=== PATIENT | male | born 1970 | race Caucasian/White ===

== ENCOUNTER 2016-08-22 15:26 | Observation (INO) | payer BC ==
[~2016-08-22] VITALS: Ht 177.8 cm; Wt 98.7 kg
[2016-08-22] MEDS ORDERED: ASPI81TA85 PO (15:33)
[2016-08-22] MEDS ORDERED: ATOR1TAB21 PO (15:33)
[2016-08-22] MEDS ORDERED: BIOT1CAP2 PO (15:33)
[2016-08-22] MEDS ORDERED: ATORVASTATIN 20 MG TAB PO ONE (16:45)
[2016-08-22] MEDS ORDERED: ASPIRIN 325 MG TAB PO ONE (16:45)
[2016-08-22 16:58] LABS: BASO % 0.4 % (0.0-1.0); EOS % 0.3 % (0.0-3.0); LARGE UNSTAINED CELL # 0.1 K/mm3 (0.0-0.4); LARGE UNSTAINED CELL % 1.1 % (0.0-4.0); LYMPH # 1.1 K/mm3 (1.5-4.5); LYMPH % 18.5 % (24.0-44.0); MEAN CORPUSCULAR HEMOGLOBIN 30.5 pg (27.0-33.0); MEAN CORPUSCULAR HGB CONC 34.3 g/dl (32.0-36.5); MONO # 0.2 K/mm3 (0.0-0.8); MONO % 3.5 % (0.0-5.0); NEUTROPHILS # 4.5 K/mm3 (1.8-7.7); NEUTROPHILS % 76.2 % (36.0-66.0); PLATELET COUNT, AUTOMATED 212 k/mm3 (150-450); RED CELL DISTRIBUTION WIDTH 12.6 % (11.5-14.5); WHITE BLOOD COUNT 5.9 K/mm3 (4.0-10.0)
[2016-08-22 17:00] LABS: INR 1.02
--- NOTE | 2016-08-22 17:09 | REP ---
CT Head without contrast HISTORY: Dizziness COMPARISON: 12/31/2007 A small area of decreased attenuation is present in the right basal ganglia. This represents an infarction of indeterminate age. A small area of decreased attenuation is present in the left basal ganglia. This represents an old lacunar infarction. There is no intraparenchymal hemorrhage, acute infarct, mass or midline shift. The ventricular system is normal in appearance. There is no extra cerebral collection. There is no fracture. The visualized sinuses are clear. IMPRESSION: 1. There is a small area of decreased attenuation in the right basal ganglia. This represents an infarction of indeterminate age. 2. Old left basal ganglia lacunar infarction. Signed by Jasper Navarro MD 08/22/2016 05:01 P
[2016-08-22 17:14] LABS: ANION GAP 10 MEQ/L (8-16); BLOOD UREA NITROGEN 14 MG/DL (7-18); CALCIUM LEVEL 8.6 MG/DL (8.5-10.1); CARBON DIOXIDE LEVEL 23 MEQ/L (21-32); CHLORIDE LEVEL 107 MEQ/L (98-107); CREATININE FOR GFR 1.26 MG/DL (0.70-1.30); GLOMERULAR FILTRATION RATE > 60.0 (>60); GLUCOSE, FASTING 165 MG/DL (70-105); POTASSIUM SERUM 3.6 MEQ/L (3.5-5.1); SODIUM LEVEL 140 MEQ/L (136-145); T UPTAKE 33 % (33-40); THYROXINE (T4) 7.9 UG/DL (4.5-12.0)
--- NOTE | 2016-08-22 17:35 | REP ---
Chest one-view HISTORY: Infarction Comparison 12/31/2007 A calcified granuloma is present in the right lower lobe. The left lung is clear. The heart is normal in size. The pulmonary vasculature is normal in appearance. Impression: No acute disease. Signed by Jasper Navarro MD 08/22/2016 05:26 P
[2016-08-22] MEDS ORDERED: BIOT10005 PO (17:44)
[2016-08-22] MEDS ORDERED: NS 1,000 ML IV SCH (18:49)
[2016-08-22] MEDS ORDERED: LORazepam 2 MG TAB PO PRN (19:00)
[2016-08-22] MEDS ORDERED: ACETAMINOPHEN TAB 650MG DOSE (2X325MG) PO PRN (19:00)
[2016-08-22] MEDS ORDERED: ONDANSETRON 4MG/2ML VIAL (J2405) IV PRN (19:00)
[2016-08-22] MEDS ORDERED: OXAZEPAM 10 MG CAP PO PRN (19:00)
--- NOTE | 2016-08-22 19:14 | REP ---
MRA BRAIN WITHOUT CONTRAST: HISTORY: Infarction. 3D TOF MR angiography was performed at the level of the [place]. There is no aneurysm, arteriovenous malformation or atherosclerotic lesion. Major intracranial vessels are patent. The vertebral arteries are equal in size. IMPRESSION: Normal MRA brain. Signed by Jasper Navarro MD 08/22/2016 07:21 P
--- NOTE | 2016-08-22 19:17 | REP ---
MRI BRAIN WITHOUT CONTRAST: HISTORY: Infarction. COMPARISON: MR 07/18/[address] 08/22/2016. There are no areas of abnormal signal intensity in the brain. There is no intraparenchymal hemorrhage, infarct, mass or midline shift. The ventricular system is normal in appearance. There is no extracerebral collection. Mucosal thickening is present in the left maxillary sinus. IMPRESSION: There is no intracranial lesion. Signed by Jasper Navarro MD 08/22/2016 07:21 P
[2016-08-22 19:40] VITALS: BP 137/88
--- NOTE | 2016-08-22 19:46 | HPEPDOC ---
Medical History and Physical Date of Admission August 22, 2016 at 18:49 History and Physical PRIMARY CARE PROVIDER: Emily Hermosillo NP ATTENDING: Natalie Ovalle MD CHIEF COMPLAINT: Lightheadedness HISTORY OF PRESENT ILLNESS: This is a 46-year-old male past medical history of CVA with no residual deficits and presents complaining of dizziness and lightheadedness. Patient had been reported to drink alcohol on the weekends, 12-15 beers, and also drinks 6 beers last night. States he was sitting in the car will as he was driving to work when he felt lightheaded and nauseous. Patient denies any syncopal episodes. No chest pain/palpitations. No slurred speech/focal weakness/ changes in vision. Upon arrival to the ED patient, patient's symptoms had resolved. He did have a CAT scan of the head with questionable CVA in the right basal ganglia of indeterminant age, with MRI negative for acute CVA. PAST MEDICAL HISTORY: As per HPI PAST SURGICAL HISTORY: Tonsillectomy SOCIAL HISTORY: Drinks tall to 18 beers on the weekend, had 6 beers last night, no illicit drug use, no tobacco use. Lives with . FAMILY HISTORY:Noncontributory ALLERGIES: Please see below. REVIEW OF SYSTEMS: HEENT: Denies sore throat/headache CARDIOVASCULAR: Denies chest pain/palpitations RESPIRATORY: No shortness of breath/cough GASTROINTESTINAL: denies nausea/vomiting GENITOURINARY: Denies dysuria/urinary urgency. MUSCULOSKELETAL: Denies myalgias/arthralgias NEUROLOGICAL: Denies any focal weakness Rest of ROS negative. HOME MEDICATIONS: Please see below. PHYSICAL EXAMINATION: Vitals: (see below) General: No acute distress, laying comfortably in bed. HEENT: Moist mucous membranes. Neck: No JVD or lymphadenopathy Cardiac: RRR, No murmurs Pulm: Clear to auscultation b/l. No wheezing, rhonchi Abd: NT/ND + BS Ext: No edema or cyanosis Neuro: Strength 5/5 BUE and BLE. CN 2-12 intact. F to N intact Negative pronator drift. Negative Bab[place]. Sensation to fine touch intact. LABORATORY DATA: See below. IMAGING: MRI brain on 08/22/16 There are no areas of abnormal signal intensity in the brain. There is no intraparenchymal hemorrhage, infarct, mass or midline shift. The ventricular system is normal in appearance. There is no extracerebral collection. Mucosal thickening is present in the left maxillary sinus. IMPRESSION:There is no intracranial lesion. MRA brain on 08/22/16 IMPRESSION:Normal MRA brain. CXR 08/22/16 Impression: No acute disease. CT head 08/22/16 A small area of decreased attenuation is present in the right basal ganglia. This represents an infarction of indeterminate age. A small area of decreased attenuation is present in the left basal ganglia. This represents an old lacunar infarction. There is no intraparenchymal hemorrhage, acute infarct, mass or midline shift. The ventricular system is normal in appearance. There is no extra cerebral collection. There is no fracture. The visualized sinuses are clear. IMPRESSION: 1. There is a small area of decreased attenuation in the right basal ganglia. This represents an infarction of indeterminate age. 2. Old left basal ganglia lacunar infarction. MICROBIOLOGY: Please see below. ASSESSMENT/PLAN: 1. Presyncope- likely secondary to dehydration and recent alcohol use. Will start patient on IV fluids as well as CIWA protocol. Serax as needed. Multivitamin, folic acid, thiamine. Will observe patient on telemetry and obtain an echocardiogram. EKG with normal sinus rhythm. no acute ST changes. 2. Hyperlipidemia- on statin. 3. History of CVA- on aspirin and statin. He discussed the case with neurology, with recommendations for 325 aspirin for now, as presentation is unlikely to be CVA. DVT prophylaxis- enoxaparin. Patient was followed by Dr. Randle starting 08/23/16 at 7 AM. Vital Signs Vital Signs Date Time Temp Pulse Resp B/P (MAP) Pulse Ox O2 Delivery O2 Flow Rate FiO2 08/22/16 19:21 82 128/78 (95) 98 08/22/16 18:49 18 08/22/16 15:57 Room Air 08/22/16 15:27 96.5 Laboratory Data Labs 24H Laboratory Tests 2 08/22/16 15:52: White Blood Count 5.9, Red Blood Count 5.37, Hemoglobin 16.4, Hematocrit 47.8, Mean Corpuscular Volume 89.0, Mean Corpuscular Hemoglobin 30.5, Mean Corpuscular Hemoglobin Concent 34.3, Red Cell Distribution Width 12.6, Platelet Count 212, Neutrophils (%) (Auto) 76.2H, Lymphocytes (%) (Auto) 18.5L, Monocytes (%) (Auto) 3.5, Eosinophils (%) (Auto) 0.3, Basophils (%) (Auto) 0.4, Neutrophils # (Auto) 4.5, Lymphocytes # (Auto) 1.1L, Monocytes # (Auto) 0.2, Eosinophils # (Auto) 0.0, Basophils # (Auto) 0.0, Large Unclassified Cells % 1.1 , Large Unclassified Cells # 0.1, Prothrombin Time 13.5, Prothromb Time International Ratio 1.02, Activated Partial Thromboplast Time 25.7L, Anion Gap 10, Glomerular Filtration Rate > 60.0, Blood Urea Nitrogen 14, Creatinine 1.26, Sodium Level 140, Potassium Level 3.6, Chloride Level 107, Carbon Dioxide Level 23, Calcium Level 8.6, Total Creatine Kinase 188, Creatine Kinase MB 2.6, Creatine Kinase MB Relative Index 1.38, Troponin I < 0.02, Thyroid Stimulating Hormone (TSH) 1.330, Free Thyroxine Index 2.6, Thyroxine (T4) 7.9, Triiodothyronine (T3) Uptake 33 CBC/BMP Laboratory Tests 08/22/16 15:52 Red Blood Count 5.37, Mean Corpuscular Volume 89.0, Mean Corpuscular Hemoglobin 30.5, Mean Corpuscular Hemoglobin Concent 34.3, Red Cell Distribution Width 12.6 , Neutrophils (%) (Auto) 76.2 H, Lymphocytes (%) (Auto) 18.5 L, Monocytes (%) ( Auto) 3.5, Eosinophils (%) (Auto) 0.3, Basophils (%) (Auto) 0.4, Neutrophils # ( Auto) 4.5, Lymphocytes # (Auto) 1.1 L, Monocytes # (Auto) 0.2, Eosinophils # ( Auto) 0.0, Basophils # (Auto) 0.0, Calcium Level 8.6, Total Creatine Kinase 188 Home Medications Scheduled Aspirin (Aspir-81) 81 Mg Tab, 81 MG PO QHS Atorvastatin Calcium (Atorvastatin Calcium) 20 Mg Tab, 20 MG PO QHS Biotin (Vitamin H) (Biotin) 1,000 Mcg Tab, 1,000 MCG PO QHS Allergies Coded Allergies: No Known Drug Allergy (Unverified Allergy, Unknown, 07/22/12) NATALIE OVALLE MD August 22, 2016 19:46
[2016-08-22] MEDS ORDERED: ATORVASTATIN 20 MG TAB PO SCH (21:00)
--- NOTE | 2016-08-22 21:54 | ECGEPIP ---
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
[2016-08-22 23:59] VITALS: BP 118/54
[2016-08-23] VITALS: BP 128/89
[2016-08-23 00:01] VITALS: BP 132/93
[2016-08-23] MEDS: MULTIVITAMINS/MINERALS THERAP 1 TAB PO SCH ×2 (01:03→09:23)
[2016-08-23] MEDS: FOLIC ACID 1 MG TAB PO SCH ×2 (01:03→09:23)
[2016-08-23] MEDS: THIAMINE 100 MG TAB PO SCH ×2 (01:03→09:23)
[2016-08-23 04:14] VITALS: BP 129/80
[2016-08-23 07:33] LABS: MEAN CORPUSCULAR HEMOGLOBIN 30.3 pg (27.0-33.0); MEAN CORPUSCULAR HGB CONC 34.5 g/dl (32.0-36.5); MEAN CORPUSCULAR VOLUME 87.9 fl (80.0-96.0); RED CELL DISTRIBUTION WIDTH 12.8 % (11.5-14.5)
[2016-08-23 07:57] LABS: ANION GAP 7 MEQ/L (8-16); BLOOD UREA NITROGEN 13 MG/DL (7-18); CALCIUM LEVEL 8.3 MG/DL (8.5-10.1); CARBON DIOXIDE LEVEL 27 MEQ/L (21-32); CHLORIDE LEVEL 108 MEQ/L (98-107); CREATININE FOR GFR 1.24 MG/DL (0.70-1.30); GLOMERULAR FILTRATION RATE > 60.0 (>60); GLUCOSE, FASTING 103 MG/DL (70-105); MAGNESIUM LEVEL 2.3 MG/DL (1.8-2.4); POTASSIUM SERUM 3.9 MEQ/L (3.5-5.1); SODIUM LEVEL 142 MEQ/L (136-145)
[2016-08-23 08:00] VITALS: BP 127/84
[2016-08-23] MEDS ORDERED: ASPIRIN 325 MG TAB PO SCH (09:00)
[2016-08-23] MEDS ORDERED: ASPI325T PO (10:39)
--- NOTE | 2016-08-23 12:42 | ECHO ---
DATE OF PROCEDURE: 08/23/2016 REFERRING PHYSICIAN: Dr. Christ Ovalle. INDICATION: Syncope. HEIGHT: 178 cm WEIGHT: 102 kg. MEASUREMENTS: Ventricular septum - 0.76 cm Posterior wall - 0.8 cm Left ventricle diastole - 5.3 cm LVOT - 2.66 cm Aortic annulus - 2.6 cm Aortic root - 3.7 cm Left atrium - 3.9 cm Inferior vena cava - 2.0 cm DOPPLER MEASUREMENTS: Aortic valve velocity - 106 cm/s LVOT velocity - 108 cm/s LVOT VTI - 21.1 cm Mitral E velocity - 49.6 cm/s Mitral A velocity - 63.9 cm/s Mitral deceleration time - 275 ms Very mild tricuspid regurgitation. Estimated right ventricle systolic pressure - 17 mmHg. MITRAL ANNULAR TISSUE DOPPLER: A prime lateral - 10.5 cm/s DESCRIPTION: The rhythm was sinus. Image quality was fair. No pericardial effusion. This is a 2D, M-mode, color flow Doppler and pulsed wave Doppler examination and included mitral annular tissue Doppler. CONCLUSIONS: 1. Normal echocardiogram Doppler. 2. Normal left ventricle internal dimensions, wall thickness, wall motion, and LV systolic function. 3. Probable normal LV diastolic function as the lateral mitral annular tissue Doppler was in a normal range.
--- NOTE | 2016-08-23 15:24 | DSES ---
DATE OF ADMISSION: 08/22/2016 DATE OF DISCHARGE: 08/23/2016 HISTORY: This is a 46-year-old male patient who presented to [facility] Emergency Room after suffering dizziness and lightheadedness prompting him to present to the emergency room. By the time he presented his symptoms had resolved. He had a CT scan of the head with a questionable CVA of the right basal ganglia of indeterminate age. Followup MRI was negative for acute CVA. He was admitted for telemetry. He has had no telemetry changes during his hospitalization. He has had, again, MRI without any lesion, MRA is also normal, carotid artery MRI is pending. He has had resolution of his symptoms. He is feeling well. He is eager to return home. He did have an echocardiogram, although the results of this are pending. I suspect his symptoms are related to some orthostatic hypotension associated with recent position change, having some beer the night before, and poor oral intake the day before. He is eager to return home. We have talked about encouraging less alcohol consumption. DISCHARGE DIAGNOSES: Include: 1. Hypotension. 2. Presyncope, likely secondary to dehydration and recent alcohol use. 3. Hyperlipidemia. 4. History of CVA. He is on an aspirin and statin. Neurology was consulted and feel as though his presentation is unlikely result of a CVA. Recommended continuing with aspirin 325 mg. DISCHARGE MEDICATIONS: Include: - aspirin 325 mg - atorvastatin 20 mg daily - Biotin 1000 mcg by mouth before bed DISCHARGE PLAN: [facility]. Activity should be as tolerated. Diet should be no added salt, low cholesterol.
[2016-08-23] MEDS ORDERED: ATORVASTATIN 20 MG TAB PO SCH (21:00)
--- NOTE | 2016-08-24 13:40 | REP ---
NRA CAROTIDS WITHOUT AND WITH CONTRAST: HISTORY: Infarction. Contrast: ProHance 25 mL Unenhanced 2D [id number] and contrast enhanced MR angiography were performed at the level of the carotid bifurcations. The distal common carotid arteries and origins of the external and internal carotid arteries are normal. The vertebral arteries are equal in size and patent. There are no atherosclerotic lesions. IMPRESSION: Normal MRA carotids. Signed by Jasper Navarro MD 08/24/2016 01:42 P
== END 2016-08-23 12:25 | disposition home or self-care (01) ==
LOC: M ED 16:31 → M ED INP 18:49 → M PCU 19:38
PROVIDERS: ADMIT Internal Medicine; ATTEND Family Medicine
DX: I95.9 Hypotension, unspecified (principal); R55 Syncope and collapse; E78.5 Hyperlipidemia, unspecified; Z86.73 Personal history of transient ischemic attack (TIA), and cerebral infarction without residual deficits; F10.10 Alcohol abuse, uncomplicated; E66.9 Obesity, unspecified; Z79.899 Other long term (current) drug therapy; Z79.82 Long term (current) use of aspirin; Z87.891 Personal history of nicotine dependence
CPT/HCPCS: 36415; 70450; 70544; 70549; 70551; 71010; 80048; 82550; 82553; 83036; 83735; 84436; 84443; 84479; 85025; 85027; 85610; 85730; 93005; 93041; 94760; 97161; 99285; A9576

== ENCOUNTER → 2016-11-03 | Outpatient (CLI) | payer BC ==
[~2016-11-03] MED LIST: ASPI325T PO; ASPI81TA85 PO; ATOR1TAB21 PO; BIOT10008 PO; BIOT1CAP2 PO
[2016-11-03 11:37] LABS: ALBUMIN 4.4 GM/DL (3.2-5.2); ALBUMIN/GLOBULIN RATIO 1.76 (1.00-1.93); ALKALINE PHOSPHATASE 64 U/L (45-117); ALT/SGPT 50 U/L (12-78); ANION GAP 6 MEQ/L (8-16); AST/SGOT 31 U/L (15-37); BLOOD UREA NITROGEN 18 MG/DL (7-18); CALCIUM LEVEL 9.1 MG/DL (8.5-10.1); CARBON DIOXIDE LEVEL 28 MEQ/L (21-32); CHLORIDE LEVEL 107 MEQ/L (98-107); CREATININE FOR GFR 1.25 MG/DL (0.70-1.30); FREE T4 0.96 NG/DL (0.76-1.46); GLOMERULAR FILTRATION RATE > 60.0 (>60); GLUCOSE, FASTING 98 MG/DL (70-105); POTASSIUM SERUM 4.1 MEQ/L (3.5-5.1); SODIUM LEVEL 141 MEQ/L (136-145); TOTAL PROTEIN 6.9 GM/DL (6.4-8.2)
== END ==
LOC: M LAB 09:23
PROVIDERS: ATTEND Nurse Practitioner Family
DX: R73.01 Impaired fasting glucose (principal); E78.5 Hyperlipidemia, unspecified

== ENCOUNTER → 2017-10-12 | Outpatient (CLI) | payer BC ==
[2017-10-12 09:09] LABS: ALBUMIN 3.8 GM/DL (3.2-5.2); ALBUMIN/GLOBULIN RATIO 1.31 (1.00-1.93); ALKALINE PHOSPHATASE 67 U/L (45-117); ALT/SGPT 37 U/L (12-78); ANION GAP 8 MEQ/L (8-16); AST/SGOT 26 U/L (7-37); BILIRUBIN,TOTAL 1.8 MG/DL (0.2-1.0); BLOOD UREA NITROGEN 17 MG/DL (7-18); CALCIUM LEVEL 8.3 MG/DL (8.5-10.1); CARBON DIOXIDE LEVEL 28 MEQ/L (21-32); CHLORIDE LEVEL 108 MEQ/L (98-107); CHOLESTEROL LEVEL 144 MG/DL (<200); CHOLESTEROL RISK RATIO 2.769 (<5); CREATININE FOR GFR 1.28 MG/DL (0.70-1.30); GLOMERULAR FILTRATION RATE > 60.0 (>60); GLUCOSE, FASTING 100 MG/DL (70-100); HDL CHOLESTEROL 52 MG/DL (>40); LDL CHOLESTEROL 70.2 MG/DL (<100); NON-HDL-C 92 MG/DL; POTASSIUM SERUM 4.2 MEQ/L (3.5-5.1); SODIUM LEVEL 144 MEQ/L (136-145); TOTAL PROTEIN 6.7 GM/DL (6.4-8.2); TRIGLYCERIDES LEVEL 109 MG/DL (<150)
== END ==
LOC: M LAB 08:26
DX: E78.5 Hyperlipidemia, unspecified (principal); E80.6 Other disorders of bilirubin metabolism
CPT/HCPCS: 80053

== ENCOUNTER → 2018-06-20 | Outpatient (REF) | payer BC ==
[2018-06-20 21:20] LABS: HEMOGLOBIN A1c 5.6 %
== END ==
LOC: M SFHCPLAZ 15:58
PROVIDERS: ATTEND Family Medicine
DX: Z68.32 Body mass index [BMI] 32.0-32.9, adult (principal); R73.01 Impaired fasting glucose

== ENCOUNTER → 2018-06-28 | Outpatient (CLI) | payer BC ==
[2018-06-28 10:34] LABS: BLOOD UREA NITROGEN 22 MG/DL (7-18); CALCIUM LEVEL 8.8 MG/DL (8.5-10.1); CARBON DIOXIDE LEVEL 28 MEQ/L (21-32); CHLORIDE LEVEL 103 MEQ/L (98-107); CREATININE FOR GFR 1.25 MG/DL (0.70-1.30); GLOMERULAR FILTRATION RATE > 60.0 (>60); GLUCOSE, FASTING 101 MG/DL (70-100); POTASSIUM SERUM 3.7 MEQ/L (3.5-5.1); SODIUM LEVEL 139 MEQ/L (136-145); URIC ACID 7.3 MG/DL (3.5-7.2)
== END ==
LOC: M LAB 09:27
PROVIDERS: ATTEND Family Medicine
DX: I10 Essential (primary) hypertension (principal)

== ENCOUNTER → 2018-07-09 | Outpatient (REF) | payer BC ==
[2018-07-09 17:31] LABS: CALCIUM LEVEL 9.7 MG/DL (8.5-10.1); CREATININE FOR GFR 1.39 MG/DL (0.70-1.30); GLOMERULAR FILTRATION RATE 58.6 (>60); POTASSIUM SERUM 3.8 MEQ/L (3.5-5.1); URIC ACID 7.5 MG/DL (3.5-7.2)
== END ==
LOC: M SFHCPLAZ 10:13
PROVIDERS: ATTEND Family Medicine
DX: I10 Essential (primary) hypertension (principal)

== ENCOUNTER → 2018-12-20 | Outpatient (CLI) | payer BC ==
[~2018-12-20] MED LIST changes: +ASPI-1 PO; -ASPI325T PO
[2018-12-20 09:35] LABS: ALBUMIN 4.1 GM/DL (3.2-5.2); ALT/SGPT 36 U/L (12-78); BILIRUBIN,TOTAL 1.7 MG/DL (0.2-1.0); BLOOD UREA NITROGEN 13 MG/DL (7-18); CALCIUM LEVEL 9.2 MG/DL (8.5-10.1); CARBON DIOXIDE LEVEL 31 MEQ/L (21-32); CHLORIDE LEVEL 105 MEQ/L (98-107); CHOLESTEROL LEVEL 129 MG/DL (<200); CHOLESTEROL RISK RATIO 2.303 (<5); CREATININE FOR GFR 1.33 MG/DL (0.70-1.30); GLOMERULAR FILTRATION RATE > 60.0 (>60); GLUCOSE, FASTING 94 MG/DL (70-100); HDL CHOLESTEROL 56 MG/DL (>40); LDL CHOLESTEROL 53 MG/DL (<100); NON-HDL-C 73 MG/DL; POTASSIUM SERUM 3.7 MEQ/L (3.5-5.1); SODIUM LEVEL 143 MEQ/L (136-145); TOTAL PROTEIN 6.7 GM/DL (6.4-8.2); TRIGLYCERIDES LEVEL 101 MG/DL (<150); URIC ACID 6.6 MG/DL (3.5-7.2)
== END ==
LOC: M LAB 08:38
PROVIDERS: ATTEND Family Medicine
DX: I10 Essential (primary) hypertension (principal); R73.01 Impaired fasting glucose; E78.5 Hyperlipidemia, unspecified

== ENCOUNTER → 2019-11-07 | Outpatient (CLI) | payer BC ==
[~2019-11-07] MED LIST changes: -ASPI81TA85 PO; +ASPI81TA86 PO
[2019-11-07 09:22] LABS: ALBUMIN 4.2 GM/DL (3.2-5.2); ALT/SGPT 39 U/L (12-78); BILIRUBIN,TOTAL 1.7 MG/DL (0.2-1.0); BLOOD UREA NITROGEN 14 MG/DL (7-18); CALCIUM LEVEL 8.8 MG/DL (8.5-10.1); CARBON DIOXIDE LEVEL 29 MEQ/L (21-32); CHLORIDE LEVEL 109 MEQ/L (98-107); CHOLESTEROL LEVEL 131 MG/DL (<200); CHOLESTEROL RISK RATIO 2.425 (<5); CREATININE FOR GFR 1.23 MG/DL (0.70-1.30); GLOMERULAR FILTRATION RATE > 60.0 (>60); GLUCOSE, FASTING 98 MG/DL (70-100); HDL CHOLESTEROL 54 MG/DL (>40); LDL CHOLESTEROL 63 MG/DL (<100); NON-HDL-C 77 MG/DL; POTASSIUM SERUM 3.9 MEQ/L (3.5-5.1); SODIUM LEVEL 144 MEQ/L (136-145); TOTAL PROTEIN 6.8 GM/DL (6.4-8.2); TRIGLYCERIDES LEVEL 68 MG/DL (<150)
== END ==
LOC: M LAB 08:39
PROVIDERS: ATTEND Family Medicine
DX: E78.5 Hyperlipidemia, unspecified (principal); I10 Essential (primary) hypertension; E80.6 Other disorders of bilirubin metabolism

== ENCOUNTER → 2021-01-03 | Outpatient (CLI) | payer BC ==
[2021-01-03 10:54] LABS: ALBUMIN 4.1 GM/DL (3.2-5.2); ALT/SGPT 44 U/L (12-78); BILIRUBIN,TOTAL 1.4 MG/DL (0.2-1.0); BLOOD UREA NITROGEN 17 MG/DL (7-18); CALCIUM LEVEL 9.1 MG/DL (8.5-10.1); CARBON DIOXIDE LEVEL 28 MEQ/L (21-32); CHLORIDE LEVEL 109 MEQ/L (98-107); CHOLESTEROL LEVEL 131 MG/DL (<200); CHOLESTEROL RISK RATIO 2.339 (<5); CREATININE FOR GFR 1.18 MG/DL (0.70-1.30); GLOMERULAR FILTRATION RATE > 60.0 (>60); GLUCOSE, FASTING 99 MG/DL (70-100); HDL CHOLESTEROL 56 MG/DL (>40); LDL CHOLESTEROL 60 MG/DL (<100); NON-HDL-C 75 MG/DL; POTASSIUM SERUM 4.4 MEQ/L (3.5-5.1); SODIUM LEVEL 140 MEQ/L (136-145); TOTAL PROTEIN 6.7 GM/DL (6.4-8.2); TRIGLYCERIDES LEVEL 75 MG/DL (<150)
[2021-01-03 11:11] LABS: MALB URINE SIEMENS < 5.0 MG/L; MAU/CREAT RATIO 3.4 MCG/MG (0.0-30.0)
== END ==
LOC: M LAB 09:11
PROVIDERS: ATTEND Family Medicine
DX: I10 Essential (primary) hypertension (principal)

== ENCOUNTER 2021-01-31 05:39 | Emergency (ER) | payer BC ==
[~2021-01-31] VITALS: Ht 177.8 cm; Wt 95.7 kg
[2021-01-31 05:39] VITALS: BP 117/80
[2021-01-31] MEDS ORDERED: ZOFR4TAB16 PO (05:55)
[2021-01-31] MEDS ORDERED: IBUP200C28 PO (05:55)
[2021-01-31] MEDS ORDERED: BENZ200C70 PO ×2 (05:55→09:22)
--- NOTE | 2021-01-31 08:27 | REP ---
INDICATION: cough + covid exposure COMPARISON: 08/22/2016 TECHNIQUE: Portable AP view of the chest FINDINGS: The mediastinum and cardiac silhouette are stable and within normal limits for portable technique. The lung oneill are clear without acute consolidation, effusion, or pneumothorax. Skeletal structures are intact. IMPRESSION: No acute cardiopulmonary process appreciated. <Electronically signed by Jose D Ryan > 01/31/21 [id number]
[2021-01-31 08:53] VITALS: O2SAT 97
== END 2021-01-31 10:27 | disposition home or self-care (01) ==
LOC: M ED 05:39
DX: U07.1 COVID-19 (principal); E78.5 Hyperlipidemia, unspecified; Z87.891 Personal history of nicotine dependence; Z86.73 Personal history of transient ischemic attack (TIA), and cerebral infarction without residual deficits; Z87.74 Personal history of (corrected) congenital malformations of heart and circulatory system; Z79.899 Other long term (current) drug therapy; Z79.82 Long term (current) use of aspirin
CPT/HCPCS: 71045; 99284; U0002

== ENCOUNTER → 2022-03-03 | Outpatient (CLI) | payer BC ==
[~2022-03-03] MED LIST changes: +BENZ200C70 PO; +IBUP200C28 PO; +ZOFR4TAB16 PO
[2022-03-03 09:44] LABS: ALT/SGPT 40 U/L (12-78); BILIRUBIN,TOTAL 1.7 MG/DL (0.2-1.0); BLOOD UREA NITROGEN 11 MG/DL (7-18); CALCIUM LEVEL 9.2 MG/DL (8.5-10.1); CARBON DIOXIDE LEVEL 27 MEQ/L (21-32); CHLORIDE LEVEL 108 MEQ/L (98-107); CHOLESTEROL LEVEL 90 MG/DL (<200); CREATININE FOR GFR 1.27 MG/DL (0.70-1.30); GLOMERULAR FILTRATION RATE > 60.0 (>56); GLUCOSE, FASTING 96 MG/DL (70-100); HDL CHOLESTEROL 50 MG/DL (>40); LDL CHOLESTEROL 26 MG/DL (<100); NON-HDL-C 40 MG/DL; SODIUM LEVEL 139 MEQ/L (136-145); TOTAL PROTEIN 6.7 GM/DL (6.4-8.2); TRIGLYCERIDES LEVEL 70 MG/DL (<150)
[2022-03-03 09:50] LABS: HEMOGLOBIN A1c 5.6 %
[2022-03-03 09:51] LABS: MALB URINE SIEMENS < 5.0 MG/L; MAU/CREAT RATIO 3.8 MCG/MG (0.0-30.0)
== END ==
LOC: M LAB 08:14
PROVIDERS: ATTEND Family Medicine
DX: I10 Essential (primary) hypertension (principal)

== ENCOUNTER 2023-08-20 07:50 | Emergency (ER) | payer BC, OTHER ==
[~2023-08-20] VITALS: Ht 177.8 cm; Wt 106.2 kg
[~2023-08-20 07:50] MED LIST changes: -AMOX875T2 PO; -ASPI81CH33 PO; -FLUO10CA18; -HOLTER MONITOR XX; -VALA1TAB5
[2023-08-20] MEDS ORDERED: FLUO10CA18 (08:01)
[2023-08-20] MEDS ORDERED: VALA1TAB5 (08:01)
[2023-08-20] MEDS ORDERED: ASPI81CH33 PO (08:01)
[2023-08-20 09:23] LABS: BASO # 0.1 10^3/uL (0.0-0.2); BASO % 1.2 % (0.0-1.0); EOS # 0.1 10^3/uL (0.0-0.5); HEMATOCRIT 44.8 % (42.0-52.0); HEMOGLOBIN 15.4 g/dl (13.5-17.5); LYMPH # 1.4 10^3/uL (1.5-5.0); LYMPH % 33.1 % (24.0-44.0); MEAN CORPUSCULAR HEMOGLOBIN 30.4 pg (27.0-33.0); MEAN CORPUSCULAR HGB CONC 34.4 g/dl (32.0-36.5); MEAN CORPUSCULAR VOLUME 88.4 fl (80.0-96.0); MONO # 0.4 10^3/uL (0.0-0.8); MONO % 8.3 % (2.0-8.0); NEUTROPHILS # 2.4 10^3/uL (1.5-8.5); NEUTROPHILS % 54.4 % (36.0-66.0); PLATELET COUNT, AUTOMATED 179 10^3/uL (150-450); RED BLOOD COUNT 5.07 10^6/uL (4.30-6.10); WHITE BLOOD COUNT 4.3 10^3/uL (4.0-10.0)
[2023-08-20 09:58] LABS: BLOOD UREA NITROGEN 15 MG/DL (9-23); CALCIUM LEVEL 8.5 MG/DL (8.5-10.1); CARBON DIOXIDE LEVEL 26 MMOL/L (20-31); CHLORIDE LEVEL 108 MMOL/L (98-107); CREATININE FOR GFR 1.11 MG/DL (0.70-1.30); GLOMERULAR FILTRATION RATE > 60.0 (>56); GLUCOSE, FASTING 120 MG/DL (60-100); MAGNESIUM LEVEL 1.9 MG/DL (1.8-2.4); SODIUM LEVEL 141 MMOL/L (136-145)
[2023-08-20] MEDS: BOOSTRIX VACCINE (TETANUS/DIPHTH/ACEL. PERTUSSIS) 0.5ML SYR IM.IMMUN ONE (10:08)
[2023-08-20] MEDS ORDERED: AMOX875T2 PO (10:12)
[2023-08-20] MEDS ORDERED: HOLTER MONITOR XX (10:12)
[2023-08-20 10:15] VITALS: BP 136/95; TEMP 98.1; O2SAT 93
== END 2023-08-20 10:24 | disposition home or self-care (01) ==
LOC: M ED 07:50
DX: R55 Syncope and collapse (principal); S02.2XXB Fracture of nasal bones, initial encounter for open fracture; Y92.9 Unspecified place or not applicable; Y93.9 Activity, unspecified; Y99.9 Unspecified external cause status; I10 Essential (primary) hypertension; E78.5 Hyperlipidemia, unspecified; Z79.2 Long term (current) use of antibiotics; Z79.1 Long term (current) use of non-steroidal anti-inflammatories (NSAID); Z79.899 Other long term (current) drug therapy; Z23 Encounter for immunization

== ENCOUNTER → 2023-08-20 | Outpatient (CLI) | payer OTHER ==
[~2023-08-20] MED LIST changes: +AMOX875T2 PO; +ASPI81CH33 PO; +FLUO10CA18; +HOLTER MONITOR XX; +VALA1TAB5
== END ==
LOC: M EKG 10:27
PROVIDERS: ATTEND Emergency Medicine
DX: R55 Syncope and collapse (principal)

== ENCOUNTER → 2023-12-21 | Outpatient (CLI) | payer OTHER ==
[~2023-12-21] MED LIST changes: +AMOX875T2 PO; +ASPI81CH33 PO; +FLUO-290; +HOLTER MONITOR XX; +VALA1TAB5
[2023-12-21 11:15] LABS: ALKALINE PHOSPHATASE 62 U/L (46-116); ALT/SGPT 33 U/L (7.0-40); AST/SGOT 28 U/L (<34); BILIRUBIN,TOTAL 1.6 MG/DL (0.3-1.2); BLOOD UREA NITROGEN 17 MG/DL (9-23); CALCIUM LEVEL 9.2 MG/DL (8.5-10.1); CARBON DIOXIDE LEVEL 24 MMOL/L (20-31); CHLORIDE LEVEL 110 MMOL/L (98-107); CHOLESTEROL LEVEL 135 MG/DL (<200); CHOLESTEROL RISK RATIO 3.04 (<5); CREATININE FOR GFR 1.12 MG/DL (0.70-1.30); GLOMERULAR FILTRATION RATE > 60.0 (>56); GLUCOSE, FASTING 107 MG/DL (60-100); HDL CHOLESTEROL 44.4 MG/DL (>40); HEMOGLOBIN A1c 5.8 % (4.0-6.0); LDL CHOLESTEROL 70.8 MG/DL (<100); NON-HDL-C 90.6 MG/DL; POTASSIUM SERUM 4.1 MMOL/L (3.5-5.1); SODIUM LEVEL 141 MMOL/L (136-145); TOTAL PROTEIN 6.7 G/DL (5.7-8.2); TRIGLYCERIDES LEVEL 99 MG/DL (<150)
== END ==
LOC: M LAB 08:37
PROVIDERS: ATTEND Family Medicine
DX: Z13.220 Encounter for screening for lipoid disorders (principal)

== ENCOUNTER 2024-06-24 07:00 | Day surgery (SDC) | payer OTHER ==
[~2024-06-24] VITALS: Ht 177.8 cm; Wt 105.1 kg
[~2024-06-24 07:00] MED LIST changes: -FLUO-290; +FLUO-290 PO; -VALA1TAB5; +VALA1TAB5 PO
[2024-06-24] MEDS ORDERED: LIDOCAINE 2% 100MG/5ML SDV (FOR ANES.) ONE (07:01)
[2024-06-24 08:35] VITALS: TEMP 98.3
[2024-06-24 08:50] VITALS: BP 123/73; O2SAT 95
== END 2024-06-24 08:54 | disposition home or self-care (01) ==
LOC: M OPP 07:00
PROVIDERS: ATTEND Surgery
DX: Z12.11 Encounter for screening for malignant neoplasm of colon (principal); K63.5 Polyp of colon; K57.30 Diverticulosis of large intestine without perforation or abscess without bleeding; Z86.73 Personal history of transient ischemic attack (TIA), and cerebral infarction without residual deficits; Z79.82 Long term (current) use of aspirin; Z79.899 Other long term (current) drug therapy